=== PATIENT | female | born 1995 | race Caucasian/White ===

== ENCOUNTER 2022-12-26 10:42 | Emergency (ER) | payer MEDICAID, OTHER ==
[~2022-12-26] VITALS: Ht 165.1 cm; Wt 76.7 kg
[2022-12-26] MEDS ORDERED: NS IV 1000 ML 1,000 ML IV STA (10:58)
[2022-12-26] MEDS ORDERED: KETOROLAC 30 MG/ML VIAL IVP STA (10:58)
--- NOTE | 2022-12-26 11:05 | ED Abdominal Pain ---
General Chief Complaint: Abdominal/GI Problems Stated Complaint: POSSIBLE APENDACITIS Nursing Triage Note: PT AMBULATE TO ROOM 07 WITHOUT DIFFICULTY WITH C/O RLQ PAIN X2DAYS. PT DENIES N/V/D/FEVER. PT SEEN AT [facility] TODAY AND SENT TO ED. Source of Information: Patient Exam Limitations: No Limitations (NURA SANZ MD) History of Present Illness Date Seen by Provider: Dec 26, 2022 Time Seen by Provider: 10:47 Initial Comments Here with complaint of right lower quadrant abdominal pain for the last 2 days that has been worsening. Reports worse with movement and walking and better with rest. Denies dysuria, blood in her urine or stool or problems with bowel movements. Denies fever or chills. Denies nausea or vomiting. Went to the clinic today and they sent her here for concerns of appendicitis. She is not sexually active and has not been for at least 7 months. Last menstrual period was a week or so ago and she does not believe that it is time for that again yet. Timing/Duration: 1-2 Days Severity/Quality: Moderate Location: RLQ Radiation: No Radiation Activities at Onset: None Modifying Factors: Worsens With Movement, Worsens With Palpation Associated Symptoms: No Chest Pain, No Fever/Chills, No Nausea/Vomiting, No Shortness of Air, No Weakness (NURA SANZ MD) Allergies and Home Medications Allergies Coded Allergies: No Known Drug Allergies (Unverified , 12/26/22) Patient Home Medication List Home Medication List Reviewed: Yes (NURA SANZ MD) Amoxicillin/Potassium Clav (Augmentin 500-125 Tablet) 500 Mg-125 Mg Tablet, 1 EACH PO BID Prescribed by: CARA CASPER MD on 12/26/22 1243 Review of Systems Review of Systems Constitutional: see HPI; No chills, No fever EENTM: No Symptoms Reported Respiratory: No Symptoms Reported Cardiovascular: Denies Chest Pain Gastrointestinal: Abdominal Pain; Denies Diarrhea, Denies Vomiting Genitourinary: Denies Burning, Denies Discharge Musculoskeletal: No back pain, No joint pain Skin: No change in color, No lesions (NURA SANZ MD) Past Qnsitrf-Fzzkwr-Vajnuv Hx Patient Social History Tobacco Use?: Yes Smoking Status: Current Everyday Smoker Smokeless Tobacco Frequency: Never a User Use of E-Cig and/or Vaping dev: No Use of E-Cig and/or Vaping Dieudonne: Never a User Substance use?: No Alcohol Use?: No Pt feels they are or have been: No (NURA SANZ MD) Past Medical History Surgeries: No Cardiac: No Neurological: No (NURA SANZ MD) Family Medical History Reviewed Nursing Family Hx (NURA SANZ MD) No Pertinent Family Hx (NURA SANZ MD) Physical Exam Vital Signs Vital Signs - First Documented 12/26/22 10:50 Temp 36.6 Pulse 114 Resp 21 B/P (MAP) 116/82 (93) O2 Delivery Room Air ([facility]) Vital Signs Capillary Refill : Less Than 3 Seconds (NURA SANZ MD) Height/Weight/BMI Height: '" Weight: lbs. oz. kg; 28.00 BMI Method: General Appearance: WD/WN, no apparent distress HEENT: PERRL/EOMI, pharynx normal Neck: full range of motion, supple Respiratory: lungs clear, normal breath sounds Cardiovascular: regular rate, rhythm, no murmur Gastrointestinal: soft, guarding; No rebound; tenderness (Right lower quadrant) Extremities: non-tender, normal inspection Back: normal inspection, no CVA tenderness, no vertebral tenderness Neurologic/Psychiatric: alert, oriented x 3 Skin: normal color, warm/dry (NURA SANZ MD) Progress/Results/Core Measures Results/Orders Lab Results Laboratory Tests Test 12/26/22 10:57 12/26/22 11:00 Range/Units White Blood Count 15.0 H 4.3-11.0 10^3/uL Red Blood Count 4.26 3.80-5.11 10^6/uL Hemoglobin 13.6 11.5-16.0 g/dL Hematocrit 39 35-52 % Mean Corpuscular Volume 90 80-99 fL Mean Corpuscular Hemoglobin 32 25-34 pg Mean Corpuscular Hemoglobin Concent 35 32-36 g/dL Red Cell Distribution Width 12.1 10.0-14.5 % Platelet Count 274 130-400 10^3/uL Mean Platelet Volume 9.1 9.0-12.2 fL Immature Granulocyte % (Auto) 0 % Neutrophils (%) (Auto) 74 42-75 % Lymphocytes (%) (Auto) 16 12-44 % Monocytes (%) (Auto) 8 0-12 % Eosinophils (%) (Auto) 1 0-10 % Basophils (%) (Auto) 0 0-10 % Neutrophils # (Auto) 11.2 H 1.8-7.8 10^3/uL Lymphocytes # (Auto) 2.4 1.0-4.0 10^3/uL Monocytes # (Auto) 1.2 H 0.0-1.0 10^3/uL Eosinophils # (Auto) 0.2 0.0-0.3 10^3/uL Basophils # (Auto) 0.1 0.0-0.1 10^3/uL Immature Granulocyte # (Auto) 0.1 0.0-0.1 10^3/uL Neutrophils % (Manual) 70 % Lymphocytes % (Manual) 19 % Monocytes % (Manual) 9 % Eosinophils % (Manual) 2 % Basophils % (Manual) 0 % Band Neutrophils 0 % Blood Morphology Comment NORMAL Sodium Level 134 L 135-145 MMOL/L Potassium Level 4.0 3.6-5.0 MMOL/L Chloride Level 104 98-107 MMOL/L Carbon Dioxide Level 18 L 21-32 MMOL/L Anion Gap 12 5-14 MMOL/L Blood Urea Nitrogen 7 7-18 MG/DL Creatinine 0.73 0.60-1.30 MG/DL Estimat Glomerular Filtration Rate 115 BUN/Creatinine Ratio 10 Glucose Level 86 70-105 MG/DL Calcium Level 8.7 8.5-10.1 MG/DL Corrected Calcium 8.9 8.5-10.1 MG/DL Total Bilirubin 0.3 0.1-1.0 MG/DL Aspartate Amino Transf (AST/SGOT) 15 5-34 U/L Alanine Aminotransferase (ALT/SGPT) 19 0-55 U/L Alkaline Phosphatase 91 40-136 U/L C-Reactive Protein High Sensitivity 3.36 H 0.00-0.50 MG/DL Total Protein 7.2 6.4-8.2 GM/DL Albumin 3.8 3.2-4.5 GM/DL Urine Color YELLOW Urine Clarity CLOUDY Urine pH 5.5 5-9 Urine Specific [place] >=1.030 1.016-1.022 Urine Protein NEGATIVE NEGATIVE Urine Glucose (UA) NEGATIVE NEGATIVE Urine Ketones NEGATIVE NEGATIVE Urine Nitrite NEGATIVE NEGATIVE Urine Bilirubin NEGATIVE NEGATIVE Urine Urobilinogen 0.2 < = 1.0 MG/DL Urine Leukocyte Esterase 3+ H NEGATIVE Urine RBC (Auto) 1+ H NEGATIVE Urine RBC 5-10 H /HPF Urine WBC 10-25 H /HPF Urine Squamous Epithelial Cells 25-50 H /HPF Urine Crystals NONE /LPF Urine Bacteria MODERATE H /HPF Urine Casts NONE /LPF Urine Mucus NEGATIVE /LPF Urine Culture Indicated YES Urine Test NEGATIVE NEGATIVE (CARA CASPER DO) Medications Given in ED Current Medications Medications Dose Ordered Sig/Ehsan Route Start Time Stop Time Status Last Admin Dose Admin Iohexol 100 ml ONCE ONCE IV 12/26/22 12:00 12/26/22 12:01 DC 12/26/22 12:04 80 ML Sodium Chloride 100 ml ONCE ONCE IV 12/26/22 12:00 12/26/22 12:01 DC 12/26/22 12:04 80 ML (CARA CASPER DO) Vital Signs/I&O 12/26/22 10:50 Temp 36.6 Pulse 114 Resp 21 B/P (MAP) 116/82 (93) O2 Delivery Room Air (CARA CASPER DO) Blood Pressure Mean: 93 Progress Progress Note : Progress Note Seen and evaluated. IV, labs including CBC, CMP, CRP, UA and UCG ordered. Normal saline 1 L bolus and Toradol 30 mg IV ordered. Patient has been n.p.o. since 5 PM last night. She will remain n.p.o. Monitor patient. Differential diagnosis includes appendicitis, urinary tract infection, ureteral stone, constipation, intra-abdominal pathology CT abdomen pelvis with contrast ordered to evaluate for appendicitis. CBC reviewed and white count is elevated with normal hemoglobin. Chemistries grossly normal with elevated CRP. UA does show elevated squames with some white cells and red cells and bacteria but overall considered contaminated sample at this point. Monitor patient. (NURA SANZ MD) Departure Communication (Admissions) Patient is hemodynamically stable. Her abdominal exam is significant for some right-sided abdominal tenderness. He seems to be the midportion of her abdomen. She does have some voluntary guarding. CT scan significant for duodenitis with significant inflammation and some free fluid on my independent review. I added an amylase lipase to her current labs which is pending. I spoke to Dr. Carlos and he recommends discharge with outpatient follow-up for possible EGD. I will give her some antibiotics for duodenitis however it is unclear the source at this time. We discharged home in stable condition. Her pain is minimal, she describes it as a cramp in her stomach but regardless it is well controlled. (CARA CASPER DO) Impression Primary Impression: Duodenitis Disposition: HOME, SELF-CARE Condition: Stable Departure-Patient Inst. Referrals: LATOSHA CARLOS DO NO,LOCAL PHYSICIAN (PCP) Primary Care Physician Patient Instructions: Abdominal Pain, Adult ED Add. Discharge Instructions: Take the antibiotics as prescribed until they are gone. Drink lots of fluids. Follow-up with Dr. Carlos by calling to schedule an appointment. You will likely need an upper endoscopy, also called an EGD. Return to the emergency department for any severe concerns. Follow-up with your primary doctor for any nonemergent needs. All discharge instructions reviewed with patient and/or family. Voiced understanding. Scripts Amoxicillin/Potassium Clav (Augmentin 500-125 Tablet) 500 Mg-125 Mg Tablet 1 EACH PO BID for 10 Days, #20 TAB Prov: CARA CASPER DO 12/26/22 NURA SANZ MD Dec 26, 2022 11:05 CARA CASPER DO Dec 26, 2022 12:45
[2022-12-26 11:06] LABS: BILIRUBIN,URINE NEGATIVE (NEGATIVE); CLARITY,URINE CLOUDY; COLOR,URINE YELLOW; GLUCOSE, URINE (UA) NEGATIVE (NEGATIVE); KETONES,URINE NEGATIVE (NEGATIVE); LEUKOCYTE ESTERASE ,URINE 3+ (NEGATIVE); NITRITE,URINE NEGATIVE (NEGATIVE); PH,URINE 5.5 (5-9); PROTEIN,URINE NEGATIVE (NEGATIVE)
[2022-12-26 11:08] LABS: BASOPHILS # (AUTO) 0.1 10^3/uL (0.0-0.1); BASOPHILS % (AUTO) 0 % (0-10); EOSINOPHILS # (AUTO) 0.2 10^3/uL (0.0-0.3); EOSINOPHILS % (AUTO) 1 % (0-10); HEMATOCRIT 39 % (35-52); HEMOGLOBIN 13.6 g/dL (11.5-16.0); LYMPHOCYTES # (AUTO) 2.4 10^3/uL (1.0-4.0); LYMPHOCYTES % (AUTO) 16 % (12-44); MEAN CORPUSCULAR HEMOGLOBIN 32 pg (25-34); MEAN CORPUSCULAR HGB CONC 35 g/dL (32-36); MEAN CORPUSCULAR VOLUME 90 fL (80-99); MEAN PLATELET VOLUME 9.1 fL (9.0-12.2); MONOCYTES # (AUTO) 1.2 10^3/uL (0.0-1.0); MONOCYTES % (AUTO) 8 % (0-12); NEUTROPHILS # (AUTO) 11.2 10^3/uL (1.8-7.8); NEUTROPHILS % (AUTO) 74 % (42-75); PLATELET COUNT 274 10^3/uL (130-400)
[2022-12-26 11:17] LABS: BACTERIA,URINE MODERATE /HPF; SQUAMOUS EPITHELIAL CELL,UR 25-50 /HPF
[2022-12-26 11:19] LABS: ALBUMIN 3.8 GM/DL (3.2-4.5)
[2022-12-26 11:20] LABS: CALCIUM 8.7 MG/DL (8.5-10.1)
[2022-12-26 11:21] LABS: TOTAL PROTEIN 7.2 GM/DL (6.4-8.2)
[2022-12-26 11:23] LABS: BILIRUBIN,TOTAL 0.3 MG/DL (0.1-1.0)
[2022-12-26 11:25] LABS: CREATININE SERUM 0.73 MG/DL (0.60-1.30)
[2022-12-26 11:54] LABS: BAND NEUTROPHILS 0 %; BASOPHILS % (MANUAL) 0 %; EOSINOPHILS % (MANUAL) 2 %; LYMPHOCYTES % (MANUAL) 19 %; MONOCYTES % (MANUAL) 9 %; NEUTROPHILS % (MANUAL) 70 %; RBC MORPH NORMAL
[2022-12-26] MEDS ORDERED: IOHEXOL 350 MG/ML 100 ML (OMNIPAQUE 350) VIAL IV ONE (12:00)
[2022-12-26] MEDS ORDERED: NS 100 ML (IVPB) BAG IV ONE (12:00)
[2022-12-26] MEDS ORDERED: HOLD METFORMIN - RECEIVED CONTRAST 20 ML VIAL IV SCH (12:00)
--- NOTE | 2022-12-26 12:30 | Diagnostic Imaging Report ---
PROCEDURE: CT abdomen and pelvis with contrast, rule out appendicitis. TECHNIQUE: Multiple contiguous axial images were obtained through the abdomen and pelvis after the administration of intravenous contrast. All CT scans use one or more of the following dose optimizing techniques: automated exposure control, MA and/or KvP adjustment based on patient size and exam type or iterative reconstruction. DATE: December 26, 2022. INDICATION: 27-year-old female, right lower quadrant abdominal pain. Nausea, vomiting, diarrhea. Fever. COMPARISON: None. FINDINGS: The visualized portions of the lungs are clear. The heart is not enlarged. There is no pericardial effusion. The liver is unremarkable in size and contour. There is no identified liver lesion. The main, right, and left portal veins are patent. The gallbladder is unremarkable. There is no intrahepatic or extrahepatic bile duct dilation. The main pancreatic duct is not abnormally dilated. Unremarkable appearance of the pancreatic parenchyma. Multiple splenic calcifications likely reflect sequela of prior granulomatous disease. The spleen is normal in size. The adrenal glands are unremarkable. Unremarkable appearance of the renal parenchyma. The urinary collecting systems are not distended. There is no identified renal or ureteral stone. The urinary bladder is unremarkable. There is a low-attenuation left adnexal lesion on axial image 137 which measures 3.6 cm in size. This may reflect an ovarian cyst but is not definitively characterized on CT. The intestinal tract is not distended. There is no free intraperitoneal air. There is no drainable fluid collection. There is no free fluid in the abdomen or pelvis. There is wall thickening of the second and third portions of the duodenum. There is a small volume ascites. There is no identified focal drainable fluid collection. There is no identified abnormally enlarged lymph node in the abdomen or pelvis meeting CT size criteria for adenopathy. There is no acute bony abnormality. IMPRESSION: 1. Abnormal wall thickening of the second and third portions of duodenum likely reflecting a nonspecific duodenitis. 2. Small volume ascites. 3. No identified focal drainable fluid collection or free intraperitoneal air. Dictated by: Dictated on workstation # [id number]
[2022-12-26] MEDS ORDERED: AMOX-355 PO (12:43)
[2022-12-26 12:57] VITALS: BP 124/72
[2022-12-29] MEDS ORDERED: METR-145 PO (12:22)
[2022-12-29] MEDS ORDERED: LEVO-55 PO (12:22)
[2022-12-29] MEDS ORDERED: ACHD5005 PO (12:22)
== END 2022-12-26 12:57 | disposition home or self-care (01) ==
LOC: ER 10:46
DX: K29.80 Duodenitis without bleeding (principal); F17.200 Nicotine dependence, unspecified, uncomplicated
CPT/HCPCS: 36415; 74177; 80053; 81000; 83690; 84703; 85007; 85027; 86141; 87088

== ENCOUNTER 2022-12-27 18:57 | Inpatient (IN) | payer MEDICAID ==
[~2022-12-27] VITALS: Ht 165 cm; Wt 76.0 kg
[~2022-12-27 18:57] MED LIST: AMOX-355 PO
--- NOTE | 2022-12-27 19:06 | ED Abdominal Pain ---
General Stated Complaint: ABD PAIN Source of Information: Patient (VERY VAGUE AND SOMEWHAT DIFFICULT HISTORIAN. ), Old Records History of Present Illness Date Seen by Provider: Dec 27, 2022 Time Seen by Provider: 18:57 Initial Comments PT ARRIVES VIA EMS FROM [facility]--PT WALKED TO [facility], THEY CALLED EMS ( NO CALL FROM [facility]) PT C/O RLQ PAIN X 2 DAYS PAIN IS CONSTANT AND DOES NOT RADIATE PAIN IS WORSE WITH MOVEMENTS, WALKING OR BREATHING NO NAUSEA/VOMITING/DIARRHEA NO URINARY SYMPTOMS AND VOIDING A NORMAL AMOUNT NO LOOP SEWER COMPLAINTS, DENIES DISCHARGE. DENIES RECENT INTERCOURSE NO COUGH NO SHORTNESS OF BREATH SHE STATES SHE HAD FEVER OF "102" AT [facility], JUST PRIOR TO ARRIVAL, NO TESTS OR TREATMENT BY [facility] SHE HAS NOT TAKEN ANYTHING FOR PAIN AT ANY TIME. LMP: --NOT SURE--THINKS IT ENDED LAST WEEK AROUND 12/20/22. NO CONTROL NO LOOP SEWER SYMPTOMS PT WAS SEEN HERE YESTERDAY AND DX WITH DUODENITIS, AND PRESCRIBED AUGMENTIN SHE DENIES ANY PRIOR MEDICAL PROBLEMS AND STATES HE HAS NOT HAD ANY SURGERIES Allergies and Home Medications Allergies Coded Allergies: No Known Drug Allergies (Unverified , 12/26/22) Patient Home Medication List Home Medication List Reviewed: Yes Amoxicillin/Potassium Clav (Augmentin 500-125 Tablet) 500 Mg-125 Mg Tablet, 1 EACH PO BID Prescribed by: CARA CASPER MD on 12/26/22 1243 Review of Systems Review of Systems Constitutional: see HPI EENTM: No Symptoms Reported Respiratory: No Symptoms Reported Cardiovascular: No Symptoms Reported Gastrointestinal: See HPI, Abdominal Pain; Denies Constipated, Denies Diarrhea, Denies Nausea, Denies Vomiting Genitourinary: No Symptoms Reported Musculoskeletal: no symptoms reported Skin: no symptoms reported Psychiatric/Neurological: No Symptoms Reported Endocrine: No Symptoms Reported Hematologic/Lymphatic: No Symptoms Reported Past Igsrfrx-Ipfuye-Aeaxnt Hx Patient Social History Tobacco Use?: Yes Tobacco type used: Cigarettes Smoking Status: Current Everyday Smoker Substance use?: Yes Substance type: Methamphetamine, Marijuana Alcohol Use?: No Past Medical History Surgeries: No Respiratory: No Cardiac: No Neurological: No : No Genitourinary: No Gastrointestinal: No Musculoskeletal: No Endocrine: No HEENT: No Cancer: No Psychosocial: No Integumentary: No Blood Disorders: No Family Medical History No Pertinent Family Hx SOCIAL HISTORY: -SMOKES 1 PPD -ETOH--DENIES USE -DRUGS--METHAMPHETAMINE AND THC USE. STATES SHE SMOKES THEM, DENIES IV USE Physical Exam Vital Signs Vital Signs - First Documented 12/27/22 18:57 Temp 37.6 Pulse 107 Resp 14 B/P (MAP) 117/77 (90) Pulse Ox 98 O2 Delivery Room Air Capillary Refill : Height/Weight/BMI Height: '" Weight: lbs. oz. kg; 28.00 BMI Method: General Appearance: WD/WN, no apparent distress, other (TALKING ON PHONE SOON SHE ARRIVES. ) HEENT: PERRL/EOMI; No scleral icterus (R), No scleral icterus (L), No pale conjunctivae (R), No pale conjunctivae (L) Neck: normal inspection Respiratory: normal breath sounds, no respiratory distress, no accessory muscle use Cardiovascular: no edema, no murmur, tachycardia Gastrointestinal: abnormal bowel sounds (RARE), distended (AND VERY FIRM), guarding, rebound, tenderness (HAS VERY SIGNIFICANT, DIFFUSE TENDERNESS, BUT IS MOST TENDER IN RLQ.); No hernia, No mass Extremities: normal inspection, normal capillary refill Back: no CVA tenderness Pelvic: discharge; No lesions; tender w/ cervical motion, tender adnexa, tender uterus, other (EXTERNAL GENITAL AREA WITHOUT LESIONS, BUT THERE IS COPIOUS PURULENT DISCHARGE NOTED EXTERNALLY WELL ON SPECULUM EXAM. CERVIX IS INFLAMED AND FRIABLE, WITH + CERVICAL MOTION TENDERNESS, AND DIFFUSE TENDERNESS ON BIMANUAL EXAM. HER ENTIRE ABDOMEN IS MARKEDLY TENDER. 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 ) Skin: normal color (FACE FLUSHED. ), warm/dry, other (SORES/SCARS/SCABS TO FACE AND FOREARMS. ) Focused Exam Sepsis Stage: Sepsis Possible Source: GI Tract/Intra-Abdominal (AND POSSIBLE GENITO-URINARY SOURCE) Lactate Level 12/27/22 19:20: Lactic Acid Level 0.99 Time of Focused Exam: 20:40 Respiratory: Normal Breath Sounds, No Accessory Muscle Use, No Respiratory Distress Cardiovascular: Regular Rate, Rhythm, No Murmur Capillary Refill: Less Than 3 Seconds Skin: normal color, warm/dry Lactic Acid Level Laboratory Tests Test 12/27/22 19:20 Lactic Acid Level 0.99 MMOL/L (0.50-2.00) Within 3hrs of presentation: Admin fluids, Admin ABX, Blood cultures prior to ABX's, Focus exam, Lactate level Progress/Results/Core Measures Results/Orders Lab Results Laboratory Tests Test 12/27/22 19:00 12/27/22 19:20 12/27/22 19:32 12/27/22 20:52 Range/Units White Blood Count 18.0 H 4.3-11.0 10^3/uL Red Blood Count 4.00 3.80-5.11 10^6/uL Hemoglobin 12.7 11.5-16.0 g/dL Hematocrit 37 35-52 % Mean Corpuscular Volume 93 80-99 fL Mean Corpuscular Hemoglobin 32 25-34 pg Mean Corpuscular Hemoglobin Concent 34 32-36 g/dL Red Cell Distribution Width 12.3 10.0-14.5 % Platelet Count 235 130-400 10^3/uL Mean Platelet Volume 9.2 9.0-12.2 fL Immature Granulocyte % (Auto) 0 % Neutrophils (%) (Auto) 80 H 42-75 % Lymphocytes (%) (Auto) 11 L 12-44 % Monocytes (%) (Auto) 8 0-12 % Eosinophils (%) (Auto) 0 0-10 % Basophils (%) (Auto) 0 0-10 % Neutrophils # (Auto) 14.4 H 1.8-7.8 10^3/uL Lymphocytes # (Auto) 2.0 1.0-4.0 10^3/uL Monocytes # (Auto) 1.4 H 0.0-1.0 10^3/uL Eosinophils # (Auto) 0.1 0.0-0.3 10^3/uL Basophils # (Auto) 0.1 0.0-0.1 10^3/uL Immature Granulocyte # (Auto) 0.1 0.0-0.1 10^3/uL Neutrophils % (Manual) 84 % Lymphocytes % (Manual) 11 % Monocytes % (Manual) 5 % Blood Morphology Comment NORMAL Erythrocyte Sedimentation Rate 31 H 0-20 MM/HR Sodium Level 135 135-145 MMOL/L Potassium Level 3.7 3.6-5.0 MMOL/L Chloride Level 105 98-107 MMOL/L Carbon Dioxide Level 21 21-32 MMOL/L Anion Gap 9 5-14 MMOL/L Blood Urea Nitrogen 6 L 7-18 MG/DL Creatinine 0.69 0.60-1.30 MG/DL Estimat Glomerular Filtration Rate 121 BUN/Creatinine Ratio 9 Glucose Level 115 H 70-105 MG/DL Calcium Level 8.9 8.5-10.1 MG/DL Corrected Calcium 9.1 8.5-10.1 MG/DL Magnesium Level 2.0 1.6-2.4 MG/DL Total Bilirubin 0.7 0.1-1.0 MG/DL Aspartate Amino Transf (AST/SGOT) 14 5-34 U/L Alanine Aminotransferase (ALT/SGPT) 16 0-55 U/L Alkaline Phosphatase 80 40-136 U/L C-Reactive Protein High Sensitivity 14.66 H 0.00-0.50 MG/DL Total Protein 7.0 6.4-8.2 GM/DL Albumin 3.7 3.2-4.5 GM/DL Amylase Level 42 25-125 U/L Lipase 17 8-78 U/L Serum Test, Qualitative NEGATIVE NEGATIVE Serum Alcohol < 10 <10 MG/DL Urine Color YELLOW Urine Clarity SL CLOUDY Urine pH 6.0 5-9 Urine Specific [place] 1.015 L 1.016-1.022 Urine Protein NEGATIVE NEGATIVE Urine Glucose (UA) NEGATIVE NEGATIVE Urine Ketones NEGATIVE NEGATIVE Urine Nitrite NEGATIVE NEGATIVE Urine Bilirubin NEGATIVE NEGATIVE Urine Urobilinogen 0.2 < = 1.0 MG/DL Urine Leukocyte Esterase 3+ H NEGATIVE Urine RBC (Auto) TRACE-I H NEGATIVE Urine RBC 10-25 H /HPF Urine WBC 10-25 H /HPF Urine Squamous Epithelial Cells 10-25 H /HPF Urine Crystals NONE /LPF Urine Bacteria MODERATE H /HPF Urine Casts NONE /LPF Urine Mucus MODERATE H /LPF Urine Trichomonas MODERATE H /HPF Urine Culture Indicated CULTURE PENDING Lactic Acid Level 0.99 0.50-2.00 MMOL/L Urine Opiates Screen NEGATIVE NEGATIVE NEGATIVE Urine Oxycodone Screen NEGATIVE NEGATIVE NEGATIVE Urine Methadone Screen NEGATIVE NEGATIVE NEGATIVE Urine Propoxyphene Screen NEGATIVE NEGATIVE NEGATIVE Urine Barbiturates Screen NEGATIVE NEGATIVE NEGATIVE Ur Tricyclic Antidepressants Screen NEGATIVE NEGATIVE NEGATIVE Urine Phencyclidine Screen NEGATIVE NEGATIVE NEGATIVE Urine Amphetamines Screen NEGATIVE NEGATIVE NEGATIVE Urine Methamphetamines Screen NEGATIVE NEGATIVE NEGATIVE Urine Benzodiazepines Screen NEGATIVE NEGATIVE NEGATIVE Urine Cocaine Screen NEGATIVE NEGATIVE NEGATIVE Urine Cannabinoids Screen NEGATIVE NEGATIVE NEGATIVE Influenza Type A (RT-PCR) Not Detected Not Detecte Influenza Type B (RT-PCR) Not Detected Not Detecte SARS-CoV-2 RNA (RT-PCR) Not Detected Not Detecte Prothrombin Time 13.6 12.2-14.7 SEC INR Comment 1.0 0.8-1.4 Activated Partial Thromboplast Time 33 24-35 SEC My Orders Orders - JOSE MANUEL BATRES DO Ed Iv/Invasive Line Start (12/27/22 19:) Monitor-Rhythm Ecg Trace Only (12/27/22:) Alcohol (12/27/22:) Amylase (12/27/22:) Cbc With Automated Diff (12/27/22) Comprehensive Metabolic Panel (12/27/22:) Hs C Reactive Protein (12/27/22:) Drug Screen Stat (Urine) (12/27/22:) Hcg,Qualitative Serum (12/27/22:) Lactic Acid Analyzer (12/27/22:) Lipase (12/27/22:) Magnesium (12/27/22:) Protime With Inr (12/27/22:) Partial Thromboplastin Time (12/27/22:) Ua Culture If Indicated (12/27/22:) Blood Culture (12/27/22:) Erythrocyte Sedimentation Rate (12/27/22:) Ct Abd/Pelv W (Appendicitis) (12/27/22:) Ed Iv/Invasive Line Start (12/27/22:) Lactated Ringers (Lr 1000 Ml Iv Solution (12/27/22 19:15) Chest 1 View, Ap/Pa Only (12/27/22:) Covid 19 Inhouse Test (12/27/22:) Urine Culture (12/27/22:) Acetaminophen Tablet (Tylenol Tablet) (12/27/22 19:15) Ed Iv/Invasive Line Start (12/27/22:01) Vital Signs Adult Sepsis Patie Q15M (12/27/22:) Remove Rings In Anticipation O (7/10/23 19:01) Piperacillin Sodium/Tazobactam (Zosyn Vi (12/27/22 19:15) Influenza A And B By Pcr (12/27/22 19:01) Manual Differential (12/27/22 19:00) Iohexol Injection (Omnipaque 350 Mg/Ml 1 (12/27/22 19:45) Ns (Ivpb) (Sodium Chloride 0.9% Ivpb Bag (12/27/22 19:45) Metronidazole 500mg/100ml Ivpb (Flagyl 5 (12/27/22 20:45) Ketorolac Injection (Toradol Injection) (12/27/22 20:45) Ceftriaxone Iv/Im (Rocephin Iv/Im) (12/27/22 21:00) Drug Screen Stat (Urine) (12/27/22 20:53) Azithromycin Tablet (Zithromax Tablet) (12/27/22 21:00) Neisseria Gonorrhea Swab (12/27/22 21:38) Chlam Dna Probe (12/27/22 21:38) Genital Culture (12/27/22 21:38) Wet Prep (12/27/22 21:38) Erica Prep (12/27/22 21:38) Medications Given in ED Current Medications Medications Dose Ordered Sig/Ehsan Route Start Time Stop Time Status Last Admin Dose Admin Azithromycin 1,000 mg ONCE ONCE PO 12/27/22 21:00 12/27/22 21:01 DC 12/27/22 21:05 1,000 MG Ceftriaxone Sodium 1000 mg/ Sodium Chloride 50 ml @ 100 mls/hr ONCE ONCE IV 12/27/22 21:00 12/27/22 21:29 DC 12/27/22 21:05 100 MLS/HR Iohexol 100 ml ONCE ONCE IV 12/27/22 19:45 12/27/22 19:46 DC 12/27/22 19:58 80 ML Ketorolac Tromethamine 30 mg ONCE ONCE IVP 12/27/22 20:45 12/27/22 20:46 DC 12/27/22 20:55 30 MG Lactated Ringer's 1,000 ml @ 0 mls/hr Q0M ONCE IV 12/27/22 19:15 12/27/22 19:16 DC 12/27/22 19:26 0 MLS/HR Metronidazole 100 ml @ 100 mls/hr ONCE ONCE IV 12/27/22 20:45 12/27/22 21:44 DC 12/27/22 20:55 100 MLS/HR Piperacillin Sod/ Tazobactam Sod 4.5 gm/Sodium Chloride 100 ml @ 200 mls/hr ONCE ONCE IV 12/27/22 19:15 12/27/22 19:44 DC 12/27/22 19:26 200 MLS/HR Sodium Chloride 100 ml ONCE ONCE IV 12/27/22 19:45 12/27/22 19:46 DC 12/27/22 19:58 80 ML Vital Signs/I&O 12/27/22 18:57 Temp 37.6 Pulse 107 Resp 14 B/P (MAP) 117/77 (90) Pulse Ox 98 O2 Delivery Room Air Progress Progress Note : Progress Note VITALS ON ARRIVAL: TEMP 37.6=99.6, HR 107, RR 14, BP 117/77, O2 SAT 98% ON ROOM AIR SEPSIS PROTOCOL INITIATED LABS INCLUDING CBC, CMP, AMYLASE/LIPASE, LACTIC ACIC, BLOOD CULTURES, UA, HCG, ETOH, UDS ORDERED WELL CT SCAN OF ABDOMEN/PELVIS GENITAL CULTURES PENDING. GIVEN: -IV FLUIDS -ZOSYN -ROCEPHIN + ZITHROMAX FOR PID/POSSIBLE STD -FLAGYL FOR + TRICHOMONAS -TORADOL FOR PAIN VITALS REMAIN STABLE. NO TACHYCARDIA OR HYPOTENSION. VITALS AT TIME OF ADMIT TO FLOOR: TEMP 36.9=98.4, HR 93, RR 18, BP 115/70, O2 SAT 98% ON ROOM AIR PERTINENT LABS: -CBC WITH WBC 18,000 --UP FROM 15,000, YESTERDAY -CMP UNREMARKABLE -LACTIC ACID 0.99 -CRP 14.66--UP FROM 3.36 YESTERDAY -UA WITH 3+ LEUKOCYTES, 10-25 RBC, 10-25 WBC, MODERATE BACTERIA, MODERATE T RICHOMONAS -HCG NEGATIVE CT SCAN SHOWS FLUID COLLECTION IN RLQ/RETROPERITONEAL, WITH POSSIBLE ABSCESS, AND INFLAMMATION TO SECOND AND THIRD PARTS OF DUODENUM PT LATER STATES THAT SHE IS IN A "WOMEN'S HOUSE" ( EXTREMELY VAGUE ABOUT WHAT KIND OF "HOUSE" THIS IS--BUT STATES THAT SHE IS SUPPOSED TO BE IN COURT TOMORROW MORNING AND IS UNDER ORDERS NOT TO LEAVE THE "HOUSE" BUT SHE DID TODAY ANYWAY BECAUSE OF THE PAIN ) SHE IS EXTREMELY VAGUE ABOUT WHY SHE IS GOING TO COURT, AND ASKED ABOUT DRUGS, SHE STATES "MAYBE-I GUESS SO" AND WILL NOT ELABORATE. PT THEN LATER ADMITS TO METHAMPHETAMINE AND THC USE. DENIES IV USE. PT STATES SHE LIVES IN [place]. DISCUSSED TEST RESULTS, NEED FOR ADMIT AND PT IS AGREEABLE TO PLAN REVIEWED PRIOR ER VISIT RECORDS FROM YESTERDAY--PT'S ONLY PRIOR VISIT HERE. Diagnostic Imaging Comments CT ABDOMEN/PELVIS--PER RADIOLOGIST REPORT AT 2022 Comparison made to previous study of yesterday. Visualized portions of the lung bases are clear. There is no free intraperitoneal air or pleural fluid. The liver shows no focal lesion. The spleen shows a few calcified granulomata but otherwise is normal in appearance. The adrenals and pancreas appear normal. The kidneys bilaterally appear normal. There is some thickening of the right ureter as it passes through the retroperitoneum, but no stone or hydronephrosis. There is thickening of the 2nd and 3rd portion of the duodenum compatible with duodenitis, similar to the prior study. There is some reactive inflammatory change in the right side of the retroperitoneum in the anterior pararenal space. There is a fluid collection in the right side of the retroperitoneum inferiorly measuring about 4.2 x 2.2 cm. Developing abscess cannot be excluded. There is a small amount of free fluid in the pelvis. There is a left adnexal cystic lesion measuring about 3.6 cm which is similar to the prior study. IMPRESSION: There is soft tissue thickening of the 2nd and 3rd portion of duodenum again noted, compatible with duodenitis. There is reactive edema in the right side of the retroperitoneum in the anterior pararenal space. Patient is developing a fluid collection in the anterior pararenal space in the right lower quadrant, measuring 4.2 x 2.2 cm. This may represent reactive edema although abscess is not excluded. The appendix is not well visualized but this process appears to be centered over the duodenum. There does appear to be some mild inflammatory change about the right ureter as it passes through the retroperitoneum, but no evidence of stone or hydronephrosis. Left adnexal cyst is unchanged. Reviewed: Reviewed by Me Departure Communication (Admissions) 2024--SPOKE WITH DR. ESPARZA, SURGEON WATER SERVER. ACCEPTS PT FOR ADMIT. ORDERS NOTED. Impression Primary Impression: Abdominal pain Additional Impressions: Duodenitis Trichomonas infection PID (pelvic inflammatory disease) UTI (urinary tract infection) History of methamphetamine use Smoker Sepsis POSSIBLE RETROPERITONEAL / RLQ ABSCESS Disposition: ADMITTED INPATIENT Condition: Stable Admissions Decision to Admit Reason: Admit from ER (General) Decision to Admit/Date: Dec 27, 2022 Time/Decision to Admit Time: 20:25 Departure-Patient Inst. Referrals: NO,LOCAL PHYSICIAN (PCP/Family) Primary Care Physician JOSE MANUEL BATRES DO Dec 27, 2022 19:06
[2022-12-27 19:12] LABS: BASOPHILS # (AUTO) 0.1 10^3/uL (0.0-0.1); BASOPHILS % (AUTO) 0 % (0-10); EOSINOPHILS # (AUTO) 0.1 10^3/uL (0.0-0.3); EOSINOPHILS % (AUTO) 0 % (0-10); HEMATOCRIT 37 % (35-52); HEMOGLOBIN 12.7 g/dL (11.5-16.0); LYMPHOCYTES % (AUTO) 11 % (12-44); MEAN CORPUSCULAR HEMOGLOBIN 32 pg (25-34); MEAN CORPUSCULAR HGB CONC 34 g/dL (32-36); MEAN CORPUSCULAR VOLUME 93 fL (80-99); MEAN PLATELET VOLUME 9.2 fL (9.0-12.2); MONOCYTES # (AUTO) 1.4 10^3/uL (0.0-1.0); MONOCYTES % (AUTO) 8 % (0-12); NEUTROPHILS # (AUTO) 14.4 10^3/uL (1.8-7.8); NEUTROPHILS % (AUTO) 80 % (42-75); PLATELET COUNT 235 10^3/uL (130-400)
[2022-12-27] MEDS ORDERED: PIPERACILLIN SODIUM/TAZOBACTAM 4.5 GM in NS (IVPB) 100 ML IV ONE (19:15)
[2022-12-27] MEDS ORDERED: LACTATED RINGERS 1,000 ML IV ONE (19:15)
[2022-12-27] MEDS ORDERED: ACETAMINOPHEN 500 MG TAB (TYLENOL) PO PRN ×2 (19:15→23:30)
[2022-12-27 19:19] LABS: ALBUMIN 3.7 GM/DL (3.2-4.5); CHLORIDE 105 MMOL/L (98-107); POTASSIUM 3.7 MMOL/L (3.6-5.0); SODIUM 135 MMOL/L (135-145)
[2022-12-27 19:20] LABS: CALCIUM 8.9 MG/DL (8.5-10.1)
[2022-12-27 19:21] LABS: AMYLASE 42 U/L (25-125); GLUCOSE 115 MG/DL (70-105)
[2022-12-27 19:22] LABS: CARBON DIOXIDE 21 MMOL/L (21-32)
[2022-12-27 19:23] LABS: BILIRUBIN,TOTAL 0.7 MG/DL (0.1-1.0)
[2022-12-27 19:25] LABS: ALKALINE PHOSPHATASE 80 U/L (40-136); CREATININE SERUM 0.69 MG/DL (0.60-1.30); GFR ESTIMATED 121
[2022-12-27 19:26] LABS: BUN/CREATININE RATIO 9
[2022-12-27 19:28] LABS: ALANINE AMINOTRANSFERASE 16 U/L (0-55)
[2022-12-27 19:29] LABS: BILIRUBIN,URINE NEGATIVE (NEGATIVE); CLARITY,URINE SL CLOUDY; COLOR,URINE YELLOW; GLUCOSE, URINE (UA) NEGATIVE (NEGATIVE); KETONES,URINE NEGATIVE (NEGATIVE); LEUKOCYTE ESTERASE ,URINE 3+ (NEGATIVE); NITRITE,URINE NEGATIVE (NEGATIVE); PROTEIN,URINE NEGATIVE (NEGATIVE)
[2022-12-27 19:30] LABS: LIPASE 17 U/L (8-78)
[2022-12-27 19:36] LABS: ERYTHROCYTE SEDIMENTATION RATE 31 MM/HR (0-20)
[2022-12-27 19:39] LABS: LYMPHOCYTES % (MANUAL) 11 %; MONOCYTES % (MANUAL) 5 %; NEUTROPHILS % (MANUAL) 84 %; RBC MORPH NORMAL
[2022-12-27] MEDS ORDERED: NS 100 ML (IVPB) BAG IV ONE (19:45)
[2022-12-27] MEDS ORDERED: IOHEXOL 350 MG/ML 100 ML (OMNIPAQUE 350) VIAL IV ONE (19:45)
[2022-12-27 19:46] LABS: BACTERIA,URINE MODERATE /HPF
[2022-12-27 19:47] LABS: AMPHETAMINE SCREEN, URINE NEGATIVE (NEGATIVE); BARBITURATE SCREEN URINE NEGATIVE (NEGATIVE); BENZODIAZEPINES SCREEN URINE NEGATIVE (NEGATIVE); CANNABINOID SCREEN, URINE NEGATIVE (NEGATIVE); COCAINE SCREEN URINE NEGATIVE (NEGATIVE); METHADONE STAT NEGATIVE (NEGATIVE); OPIATE SCREEN URINE NEGATIVE (NEGATIVE); OXYCODONE STAT NEGATIVE (NEGATIVE); PROPOXYPHENE STAT NEGATIVE (NEGATIVE); TRICHOMONAS,URINE MODERATE /HPF; TRICYCLIC ANTIDEPRESSANTS SCRE NEGATIVE (NEGATIVE)
[2022-12-27 20:10] LABS: PROTHROMBIN TIME PATIENT 13.6 SEC (12.2-14.7)
--- NOTE | 2022-12-27 20:15 | Diagnostic Imaging Report ---
INDICATION: Fever Frontal chest obtained at 0755 p.m. Heart and mediastinal silhouette are normal in appearance. The lungs are clear. There is no pneumothorax or pleural fluid. IMPRESSION: Negative chest. Dictated by: Dictated on workstation # [id number]
--- NOTE | 2022-12-27 20:19 | Diagnostic Imaging Report ---
INDICATION: Right lower quadrant abdominal pain. TECHNIQUE: Multiple contiguous axial images were obtained through the abdomen and pelvis after the administration of intravenous contrast. All CT scans use one or more of the following dose optimizing techniques: automated exposure control, MA and/or KvP adjustment based on patient size and exam type or iterative reconstruction. Comparison made to previous study of yesterday. Visualized portions of the lung bases are clear. There is no free intraperitoneal air or pleural fluid. The liver shows no focal lesion. The spleen shows a few calcified granulomata but otherwise is normal in appearance. The adrenals and pancreas appear normal. The kidneys bilaterally appear normal. There is some thickening of the right ureter as it passes through the retroperitoneum, but no stone or hydronephrosis. There is thickening of the 2nd and 3rd portion of the duodenum compatible with duodenitis, similar to the prior study. There is some reactive inflammatory change in the right side of the retroperitoneum in the anterior pararenal space. There is a fluid collection in the right side of the retroperitoneum inferiorly measuring about 4.2 x 2.2 cm. Developing abscess cannot be excluded. There is a small amount of free fluid in the pelvis. There is a left adnexal cystic lesion measuring about 3.6 cm which is similar to the prior study. IMPRESSION: There is soft tissue thickening of the 2nd and 3rd portion of duodenum again noted, compatible with duodenitis. There is reactive edema in the right side of the retroperitoneum in the anterior pararenal space. Patient is developing a fluid collection in the anterior pararenal space in the right lower quadrant, measuring 4.2 x 2.2 cm. This may represent reactive edema although abscess is not excluded. The appendix is not well visualized but this process appears to be centered over the duodenum. There does appear to be some mild inflammatory change about the right ureter as it passes through the retroperitoneum, but no evidence of stone or hydronephrosis. Left adnexal cyst is unchanged. Dictated by: Dictated on workstation # [id number]
[2022-12-27] MEDS ORDERED: metroNIDAZOLE 500MG/100ML IVPB 100 ML IV ONE (20:45)
[2022-12-27] MEDS ORDERED: KETOROLAC 30 MG/ML VIAL IVP ONE (20:45)
[2022-12-27] MEDS ORDERED: AZITHROMYCIN 250 MG TAB (ZITHROMAX) PO ONE (21:00)
[2022-12-27] MEDS ORDERED: cefTRIAXone IV/IM 1,000 MG in NS (IVPB) 50 ML IV ONE (21:00)
[2022-12-27 21:19] LABS: AMPHETAMINE SCREEN, URINE NEGATIVE (NEGATIVE); BARBITURATE SCREEN URINE NEGATIVE (NEGATIVE); BENZODIAZEPINES SCREEN URINE NEGATIVE (NEGATIVE); CANNABINOID SCREEN, URINE NEGATIVE (NEGATIVE); COCAINE SCREEN URINE NEGATIVE (NEGATIVE); METHADONE STAT NEGATIVE (NEGATIVE); OPIATE SCREEN URINE NEGATIVE (NEGATIVE); OXYCODONE STAT NEGATIVE (NEGATIVE); PROPOXYPHENE STAT NEGATIVE (NEGATIVE); TRICYCLIC ANTIDEPRESSANTS SCRE NEGATIVE (NEGATIVE)
[2022-12-27 22:10] VITALS: BP 110/63
[2022-12-27] MEDS ORDERED: D5 1/2 NS W/KCL 20 MEQ/L 1,000 ML IV ONE (23:12)
[2022-12-27] MEDS ORDERED: fentaNYL INJ 100 MCG/2 ML AMP IV PRN (23:30)
[2022-12-27] MEDS ORDERED: ONDANSETRON 4 MG/2 ML (SDV) Z0FRAN IV PRN (23:30)
[2022-12-27] MEDS: D5 1/2 NS W/KCL 20 MEQ/L 1,000 ML IV SCH (23:33)
[2022-12-27] MEDS ORDERED: VANCOMYCIN 1500MG/300ML PREMIX IV ONE (23:45)
--- NOTE | 2022-12-27 23:59 | HISTORY AND PHYSICAL ---
HISTORY OF PRESENT ILLNESS: The patient is a 27-year-old female, who presented to the Emergency Department with abdominal pain for the past 2 days. She states that this started yesterday and she did present to the Emergency Department where a CT scan was performed, which did show some mild inflammation of the duodenum and she was treated with antibiotics. She states that the pain persisted and worsened over time and again presented to the Emergency Department where another CT scan was performed, which did show slight worsening and inflammation of the second and third portions of the duodenum. There appears to be a fluid collection, which is in the right retroperitoneal region as well of unknown etiology. The appendix was not visualized on the CT scan. She does not report any change in urinary symptoms and denies any gynecologic issues. PAST SURGICAL HISTORY: Duodenitis. PAST SURGERIES: None. ALLERGIES: No known drug allergies. MEDICATIONS: Augmentin 500 mg b.i.d. SOCIAL HISTORY: Positive smoke 10 pack years. Social alcohol. She does use marijuana and has used methamphetamine in the past. FAMILY HISTORY: Noncontributory. VITAL SIGNS: Temperature 36.9, blood pressure 110/63, pulse 93, respirations 16, pulse ox 98% on room air. REVIEW OF SYSTEMS: Well-nourished female, currently in no acute distress. She is not experiencing any shortness of breath or difficulty breathing. No chest pain, palpitations, diaphoresis. She does have epigastric pain; however she also states pain more in the right lower abdominal quadrant. She does not report any diarrhea as well as no red blood per rectum, nor any dark tarry stools. No fever, chills, no recent inadvertent weight loss. All other review of systems negative. PHYSICAL EXAMINATION: CHEST: Clear. Good breath sounds bilaterally. HEART: Regular. No murmurs. EXTREMITIES: No lower extremity edema. Negative Homans sign. HEENT: No scleral icterus. No cervical lymphadenopathy. ABDOMEN: nondistended with pain in the epigastric region, right upper abdominal quadrant as well as right lower abdominal quadrant with voluntary guarding, no rebound. SKIN: Warm, dry. LABORATORY DATA: WBC 18.0, hemoglobin 12.7, hematocrit 37, platelets 235. BUN 6, creatinine 0.69. Liver function enzymes normal. Amylase, lipase normal. Urinalysis, 3+ leukocyte esterase with a moderate amount of bacteria as well as moderate Trichomonas. ASSESSMENT AND PLAN: A 27-year-old female with abdominal pain and duodenitis as well as a small right retroperitoneal lesion with a urinary tract infection and positive for Trichomonas. We feel that the inflammation of the duodenum is likely due to peptic ulcer disease and we will recommend an EGD on this admission. Also if her abdominal pain continues, we may recommend a diagnostic laparoscopy as well as evaluation of her uterus and ovaries and appendectomy. Job ID: [id number] DocumentID: [id number] Dictated Date: 12/27/2022 23:24:45 Beader Tender Date: 12/27/2022 23:57:00 Dictated By: JAC ESPARZA MD [facility]
[2022-12-28] VITALS (7 sets, daily range): BP systolic 91–102; BP diastolic 53–65
[2022-12-28] MEDS: PIPERACILLIN SODIUM/TAZOBACTAM 4.5 GM in NS (IVPB) 100 ML IV SCH ×3 (02:47→17:54)
[2022-12-28] MEDS ORDERED: diphenhydrAMINE 50 MG/ML INJ (BENADRYL) ONE (04:17)
[2022-12-28] MEDS: diphenhydrAMINE 50 MG/ML INJ (BENADRYL) IVP PRN ×3 (04:19→23:49)
[2022-12-28 04:43] LABS: BASOPHILS # (AUTO) 0.1 10^3/uL (0.0-0.1); BASOPHILS % (AUTO) 0 % (0-10); EOSINOPHILS # (AUTO) 0.1 10^3/uL (0.0-0.3); EOSINOPHILS % (AUTO) 1 % (0-10); HEMATOCRIT 35 % (35-52); HEMOGLOBIN 11.7 g/dL (11.5-16.0); LYMPHOCYTES # (AUTO) 1.9 10^3/uL (1.0-4.0); LYMPHOCYTES % (AUTO) 12 % (12-44); MEAN CORPUSCULAR HEMOGLOBIN 31 pg (25-34); MEAN CORPUSCULAR HGB CONC 34 g/dL (32-36); MEAN CORPUSCULAR VOLUME 93 fL (80-99); MEAN PLATELET VOLUME 9.7 fL (9.0-12.2); MONOCYTES # (AUTO) 1.6 10^3/uL (0.0-1.0); MONOCYTES % (AUTO) 10 % (0-12); NEUTROPHILS # (AUTO) 12.8 10^3/uL (1.8-7.8); NEUTROPHILS % (AUTO) 77 % (42-75); PLATELET COUNT 226 10^3/uL (130-400); WHITE BLOOD COUNT 16.6 10^3/uL (4.3-11.0)
[2022-12-28 05:11] LABS: ALBUMIN 3.4 GM/DL (3.2-4.5); BILIRUBIN,TOTAL 0.6 MG/DL (0.1-1.0); CALCIUM 8.5 MG/DL (8.5-10.1); CREATININE SERUM 0.71 MG/DL (0.60-1.30); POTASSIUM 3.9 MMOL/L (3.6-5.0); TOTAL PROTEIN 6.3 GM/DL (6.4-8.2)
[2022-12-28] MEDS: D5 1/2 NS W/KCL 20 MEQ/L 1,000 ML IV SCH ×4 (05:11→17:55)
[2022-12-28] MEDS: PANTOPRAZOLE 40 MG (PROTONIX) VIAL IV SCH ×2 (08:01→19:38)
[2022-12-28] MEDS: metroNIDAZOLE 500 MG/100 ML IVPB (PRE-MIX) IV SCH ×2 (08:01→19:38)
[2022-12-28] MEDS: VANCOMYCIN 1 GM/NS 250 ML IVPB IV SCH ×6 (08:01→23:49)
[2022-12-28] MEDS ORDERED: AMOX-355 PO (11:21)
[2022-12-28] MEDS: KETOROLAC 30 MG/ML VIAL IVP PRN (12:59)
--- NOTE | 2022-12-28 13:52 | Progress Note ---
Subjective Date Seen by a Provider: Dec 28, 2022 Time Seen by a Provider: 13:00 Subjective/Events-last exam still having crampy abd pain. no fever/chills. no nausea/vomiting. Focused Exam Lactate Level 12/27/22 19:20: Lactic Acid Level 0.99 Time of Focused Exam: 20:40 Objective Exam Vital Signs Date Time Temp Pulse Resp B/P (MAP) Pulse Ox O2 Delivery O2 Flow Rate FiO2 12/28/22 13:00 96 12/28/22 11:08 36.8 89 18 102/53 (69) 96 Room Air 12/28/22 08:00 Room Air 12/28/22 07:14 36.4 79 18 96/64 (75) 97 Room Air 12/28/22 07:00 84 12/28/22 05:11 37.0 12/28/22 04:28 38.0 12/28/22 03:51 36.9 95 18 94/60 (71) 96 Room Air 12/28/22 01:00 105 12/28/22 00:00 36.5 85 18 102/65 (77) 96 Room Air 12/27/22 22:57 104 12/27/22 22:45 98 Room Air 12/27/22 22:10 36.9 93 16 110/63 (79) 97 Room Air 12/27/22 21:58 93 18 115/70 98 Room Air 12/27/22 18:57 37.6 107 14 117/77 (90) 98 Room Air I & O 12/28/22 07:00 Intake Total 1450 ml Balance 1450 ml Capillary Refill : Less Than 3 Seconds General Appearance: No Apparent Distress HEENT: PERRL/EOMI Neck: Full Range of Motion Respiratory: Chest Non Tender, Lungs Clear, Normal Breath Sounds Cardiovascular: Regular Rate, Rhythm Gastrointestinal: normal bowel sounds, soft, tenderness Extremity: Normal Capillary Refill Neurologic/Psychiatric: Alert, Oriented x3 Skin: Normal Color Lymphatic: No Adenopathy Results Lab Laboratory Tests 12/27/22 19:00: White Blood Count 18.0H, Red Blood Count 4.00, Hemoglobin 12.7, Hematocrit 37, Mean Corpuscular Volume 93, Mean Corpuscular Hemoglobin 32, Mean Corpuscular Hemoglobin Concent 34, Red Cell Distribution Width 12.3, Platelet Count 235, Mean Platelet Volume 9.2, Immature Granulocyte % (Auto) 0, Neutrophils (%) (Auto) 80H, Lymphocytes (%) (Auto) 11L, Monocytes (%) (Auto) 8, Eosinophils (%) (Auto) 0, Basophils (%) (Auto) 0, Neutrophils # (Auto) 14.4H, Lymphocytes # (Auto) 2.0, Monocytes # (Auto) 1.4H, Eosinophils # (Auto) 0.1, Basophils # (Auto) 0.1, Immature Granulocyte # (Auto) 0.1, Neutrophils % (Manual) 84, Lymphocytes % (Manual) 11, Monocytes % (Manual) 5, Blood Morphology Comment NORMAL, Erythrocyte Sedimentation Rate 31H, Sodium Level 135, Potassium Level 3.7, Chloride Level 105, Carbon Dioxide Level 21, Anion Gap 9, Blood Urea Nitrogen 6L, Creatinine 0.69, Estimat Glomerular Filtration Rate 121, BUN/Creatinine Ratio 9, Glucose Level 115H, Calcium Level 8.9, Corrected Calcium 9.1, Magnesium Level 2.0, Total Bilirubin 0.7, Aspartate Amino Transf (AST/SGOT) 14, Alanine Aminotransferase (ALT/SGPT) 16, Alkaline Phosphatase 80, C-Reactive Protein High Sensitivity 14.66H, Total Protein 7.0, Albumin 3.7, Amylase Level 42, Lipase 17, Serum Test, Qualitative NEGATIVE, Serum Alcohol < 10 12/27/22 19:20: Urine Color YELLOW, Urine Clarity SL CLOUDY, Urine pH 6.0, Urine Specific [place] 1.015L, Urine Protein NEGATIVE, Urine Glucose (UA) NEGATIVE, Urine Ketones NEGATIVE, Urine Nitrite NEGATIVE, Urine Bilirubin NEGATIVE, Urine Urobilinogen 0.2, Urine Leukocyte Esterase 3+H, Urine RBC (Auto) TRACE-IH, Urine RBC 10-25H, Urine WBC 10-25H, Urine Squamous Epithelial Cells 10-25H, Urine Crystals NONE, Urine Bacteria MODERATEH, Urine Casts NONE, Urine Mucus MODERATEH , Urine Trichomonas MODERATEH, Urine Culture Indicated CULTURE PENDING, Lactic Acid Level 0.99, Urine Opiates Screen NEGATIVE, Urine Oxycodone Screen NEGATIVE, Urine Methadone Screen NEGATIVE, Urine Propoxyphene Screen NEGATIVE, Urine Barbiturates Screen NEGATIVE, Ur Tricyclic Antidepressants Screen NEGATIVE, Urine Phencyclidine Screen NEGATIVE, Urine Amphetamines Screen NEGATIVE, Urine Methamphetamines Screen NEGATIVE, Urine Benzodiazepines Screen NEGATIVE, Urine Cocaine Screen NEGATIVE, Urine Cannabinoids Screen NEGATIVE, Influenza Type A (RT-PCR) Not Detected, Influenza Type B (RT-PCR) Not Detected, SARS-CoV-2 RNA (RT-PCR) Not Detected 12/27/22 19:32: Prothrombin Time 13.6, INR Comment 1.0, Activated Partial Thromboplast Time 33 12/27/22 20:52: Urine Opiates Screen NEGATIVE, Urine Oxycodone Screen NEGATIVE, Urine Methadone Screen NEGATIVE, Urine Propoxyphene Screen NEGATIVE, Urine Barbiturates Screen NEGATIVE, Ur Tricyclic Antidepressants Screen NEGATIVE, Urine Phencyclidine Screen NEGATIVE, Urine Amphetamines Screen NEGATIVE, Urine Methamphetamines Screen NEGATIVE, Urine Benzodiazepines Screen NEGATIVE, Urine Cocaine Screen NEGATIVE, Urine Cannabinoids Screen NEGATIVE 12/28/22 04:05: White Blood Count 16.6H, Red Blood Count 3.74L, Hemoglobin 11.7, Hematocrit 35, Mean Corpuscular Volume 93, Mean Corpuscular Hemoglobin 31, Mean Corpuscular Hemoglobin Concent 34, Red Cell Distribution Width 12.4, Platelet Count 226, Mean Platelet Volume 9.7, Immature Granulocyte % (Auto) 1, Neutrophils (%) (Auto) 77H, Lymphocytes (%) (Auto) 12, Monocytes (%) (Auto) 10, Eosinophils (%) (Auto) 1, Basophils (%) (Auto) 0, Neutrophils # (Auto) 12.8H, Lymphocytes # (Auto) 1.9, Monocytes # (Auto) 1.6H, Eosinophils # (Auto) 0.1, Basophils # (Auto) 0.1, Immature Granulocyte # (Auto) 0.1, Sodium Level 137, Potassium Level 3.9, Chloride Level 109H, Carbon Dioxide Level 20L, Anion Gap 8, Blood Urea Nitrogen 5L, Creatinine 0.71, Estimat Glomerular Filtration Rate 119, BUN/Creatinine Ratio 7, Glucose Level 97, Calcium Level 8.5, Corrected Calcium 9.0, Total Bilirubin 0.6, Aspartate Amino Transf (AST/SGOT) 11, Alanine Aminotransferase (ALT/SGPT) 15, Alkaline Phosphatase 72, Total Protein 6.3L, Albumin 3.4 Microbiology 12/27/22 Genital Culture, Resulted Pending 12/27/22 Wet Prep - Final, Resulted Assessment/Plan Assessment/Plan Assess & Plan/Chief Complaint abd pain with duodenitis and RLQ abd pain. EGD with bx and dx laparoscopy r/o tonny's syndrome. JAC ESPARZA MD Dec 28, 2022 13:52
[2022-12-29] VITALS (10 sets, daily range): BP systolic 95–114; BP diastolic 55–78
[2022-12-29] MEDS: PIPERACILLIN SODIUM/TAZOBACTAM 4.5 GM in NS (IVPB) 100 ML IV SCH ×2 (01:20→10:38)
[2022-12-29] MEDS: D5 1/2 NS W/KCL 20 MEQ/L 1,000 ML IV SCH ×2 (05:38→15:44)
[2022-12-29] MEDS ORDERED: TROUGH ORDER-PHARMACY XX ONE (07:00)
[2022-12-29] MEDS: VANCOMYCIN 1 GM/NS 250 ML IVPB IV SCH ×4 (08:08→16:09)
[2022-12-29] MEDS: metroNIDAZOLE 500 MG/100 ML IVPB (PRE-MIX) IV SCH (08:26)
[2022-12-29] MEDS: PANTOPRAZOLE 40 MG (PROTONIX) VIAL IV SCH (08:26)
[2022-12-29] MEDS: KETOROLAC 30 MG/ML VIAL IVP PRN (08:30)
[2022-12-29] MEDS: diphenhydrAMINE 50 MG/ML INJ (BENADRYL) IVP PRN (08:30)
[2022-12-29] MEDS ORDERED: SEVOFLURANE (ULTANE) 15 ML INHAL SOLN ONE (10:29)
[2022-12-29] MEDS ORDERED: MIDAZOLAM 2 MG/2 ML (VERSED) VIAL ONE (10:29)
[2022-12-29] MEDS ORDERED: ROCURONIUM 50 MG/5 ML (ZEMURON) VIAL IV ONE (10:29)
[2022-12-29] MEDS ORDERED: fentaNYL INJ 100 MCG/2 ML AMP ONE (10:29)
[2022-12-29] MEDS ORDERED: proPOfol 200 MG/20 ML (DIPRIVAN) VIAL IV ONE (10:29)
[2022-12-29] MEDS ORDERED: LIDOCAINE PF 2% 5 ML (XYLOCAINE) VIAL ONE (10:29)
[2022-12-29] MEDS ORDERED: LIDOCAINE/EPI 1%-1:100,000 (XYLOCAINE) 20ML ONE (10:33)
[2022-12-29] MEDS: LACTATED RINGERS 1,000 ML IV PRN ×2 (10:39→12:10)
--- NOTE | 2022-12-29 10:42 | Progress Note-Pre Operative ---
Pre-Operative Progress Note Date of Available H&P: Dec 29, 2022 Date H&P Reviewed: Dec 29, 2022 Time H&P Reviewed: 10:00 History & Physical: No changes noted Pre-Operative Diagnosis: duodenitis, right lower quadrant abd pain. JAC ESPARZA MD Dec 29, 2022 10:42
[2022-12-29] MEDS ORDERED: morphine INJ 4 MG/ML 1 ML (VIAL/SYRINGE) IVP PRN (10:45)
[2022-12-29] MEDS ORDERED: LACTATED RINGERS 1,000 ML IV PRN (11:15)
[2022-12-29] MEDS ORDERED: LIDOCAINE/EPI 1%-1:100,000 (XYLOCAINE) 20ML INJ ONE (11:26)
[2022-12-29] MEDS ORDERED: GLYCOPYRROLATE 0.2 MG/ML (ROBINUL) 2 ML VIAL ONE (11:40)
[2022-12-29] MEDS ORDERED: NEOSTIGMINE (BLOXIVERZ ) 1 MG/1ML 10 ML VIAL ONE (11:40)
[2022-12-29] MEDS ORDERED: HYDROmorphone 2 MG/ML VIAL (DILAUDID) ONE (11:54)
[2022-12-29] MEDS ORDERED: ONDANSETRON 4 MG/2 ML (SDV) Z0FRAN ONE (11:57)
--- NOTE | 2022-12-29 12:10 | Anesthesia-General Post-Op ---
General Patient Condition Mental Status/LOC: Same as Preop Cardiovascular: Satisfactory Nausea/Vomiting: Absent Respiratory: Satisfactory Pain: Controlled Complications: Absent Post Op Complications Complications None Follow Up Care/Instructions Patient Instructions None needed. Anesthesia/Patient Condition Patient Condition Patient is doing well, no complaints, stable vital signs, no apparent adverse anesthesia problems. No complications reported per nursing. D/C home per [facility] [place] Criteria: Yes LANA MEI CRNA Dec 29, 2022 12:10
[2022-12-29] MEDS ORDERED: ONDANSETRON 4 MG/2 ML (SDV) Z0FRAN IVP PRN (12:15)
[2022-12-29] MEDS ORDERED: HYDROmorphone 2 MG/ML VIAL (DILAUDID) IV ONE (12:15)
--- NOTE | 2022-12-29 12:15 | Progress Note-Post Operative ---
Post-Operative Progess Note Surgeon (s)/Location Man (s) Surgeon JAC ESPARZA MD Location Man: none Pre-Operative Diagnosis duodenitis, right lower quadrant abd pain. Post-Operative Diagnosis acute non-complicated apendicitis, left ovarian cyst. reflux esophagitis(grade B), moderate gastritis and duodenitis. Procedure & Operative Findings Date of Procedure 12/29/22 Procedure Performed/Findings diagnostic laparoscopy, laparoscopic appendectomy, EGD with bx. Anesthesia Type get Estimated Blood Loss Estimated blood loss (mL): minimal Specimens/Packing Specimens Removed appendix, ge jxn, antrum, duodenum. JAC ESPARZA MD Dec 29, 2022 12:15
[2022-12-29] MEDS ORDERED: ACHD5005 PO (12:22)
[2022-12-29] MEDS ORDERED: METR-145 PO (12:22)
[2022-12-29] MEDS ORDERED: LEVO-55 PO (12:22)
--- NOTE | 2022-12-29 12:23 | Discharge Inst-Surgical ---
D/C Lap Instructions-VILMA New, Converted, or Re-Newed RX: RX on Chart Follow Up Appt in 2 weeks Activity as tolerated No driving for 24 hours No driving while on pain medications Incentive Spirometry use every 2 hours while awake Regular Diet Symptoms to Report: Fever over 101 degree F, Nausea/Vomiting Infection Signs and Symptoms to report: Increased redness, Foul odor of wound, Increased drainage Bathing instructions: May shower Operative Area Clean/Dry; Keep incision clean/dry If any problems/questions: Contact your physician or go to Emergency Room JAC ESPARZA MD Dec 29, 2022 12:23
--- NOTE | 2022-12-29 17:45 | OPERATIVE REPORT ---
DATE OF SERVICE: 12/29/2022 PREOPERATIVE DIAGNOSES: Duodenitis, right lower abdominal quadrant pain. POSTOPERATIVE DIAGNOSES: Reflux esophagitis, [place] grade B, moderate gastritis and duodenitis. No formal ulcerations. Left ovarian cyst, acute noncomplicated appendicitis. PROCEDURE: Diagnostic laparoscopy, laparoscopic appendectomy. EGD with biopsy. SURGEON: Jac Esparza MD ANESTHESIA: General endotracheal. ESTIMATED BLOOD LOSS: Minimal. FINDINGS: Reflux esophagitis, [place] grade B, moderate gastritis and duodenitis. No formal ulcerations. Left ovarian cyst, acute noncomplicated appendicitis. DISPOSITION: The patient tolerated the procedure well. INDICATIONS: The patient is a 27-year-old female who presented to the Emergency Department with abdominal pain. She had reported the pain for the past 2 days and was localized more on the right side of the abdomen including the right upper abdominal quadrant; however, also the right lower abdominal quadrant. She had presented to the Emergency Department a day previous and a CT scan was performed, which did show some duodenitis. However, no other abnormalities. The following day, another CT scan was performed and again duodenitis identified and the appendix is not visualized. The patient was also found to have Trichomonas vaginalis upon admission. She also had a urinary tract infection. DESCRIPTION OF PROCEDURE: The patient was brought to the operating room, laid supine on the table. After adequate IV pain and sedative medications and general endotracheal intubation, the abdomen was prepped and draped in standard surgical fashion. A 0.5% Marcaine with epinephrine was used to anesthetize the overlying skin in the left upper abdominal quadrant and a transverse skin incision made using #15 blade. An 0 silk suture was applied to the medial aspect of the incision for retraction and Veress needle inserted with a low opening pressure of 0 mmHg and the abdomen was insufflated to 15 mmHg pressure. Veress needle removed and a 5 mm XL trocar placed followed by a 5 mm 45-degree angle laparoscope visualized the peritoneal cavity. A 4-quadrant abdominal exploration was performed. There was some serous fluid in the pelvis, which appeared physiologic. There was a left ovarian cyst, which appeared to be a physiologic corpus luteal cyst. There was also inflammation of the appendix with no perforation. The gallbladder, liver, small bowel appeared normal. Under direct visualization, we then placed a supraumbilical 10 mm port after the skin and peritoneal lining were anesthetized using 0.5% Marcaine with epinephrine and a transverse skin incision made using a #15 blade. In a similar manner, a suprapubic 5 mm port was placed. The patient was then placed in Trendelenburg position. The appendix was then gently dissected out in a blunt manner. The appendix was then retracted towards the anterior abdominal wall and a window created between the base of the appendix and the mesoappendix using a [place] dissector. The appendix was then stapled at the cecal base using a GIA45 mm stapler with a 2.5 mm thickness load. The mesoappendix was then stapled and transected with the same stapler with a 2.0 mm thickness reload with visualization of good hemostasis. The area was then copiously irrigated and suctioned out. The appendix was removed through the 10 mm port site using an EndoCatch bag. The 10 mm port site fascia and peritoneum were then closed under direct visualization using a Riky-Elza device and 0 Vicryl suture. The abdomen was desufflated and remaining ports removed. All skin incisions were closed using 4-0 Monocryl running subcuticular sutures. Wounds were then cleaned and covered with Dermabond. The mouthpiece was applied. The endoscope was placed in the mouth, visualize the pharynx and hypopharyngeal region. Vocal cords, epiglottis and vallecula identified and appeared to be normal. Endoscope was then gently intubated in the esophageal opening and esophagus insufflated. The endoscope was then advanced through the first, second and third portions of esophagus at the level of the GE junction, reflux esophagitis, [place] grade B identified. No ulcers or strictures identified. A biopsy was taken with forceps with visualization of good hemostasis. The endoscope was then advanced into the stomach and endoscope retroflexed visualizing no significant hiatal hernia. There was moderate gastritis as well as moderate duodenitis. However, no formal ulcerations, polyps or any neoplasms. A biopsy was taken of the antrum to rule out H. pylori as well as the duodenum with visualization of good hemostasis. The endoscope was then slowly withdrawn while taking a second look and suctioning of residual air with no additional findings. The patient tolerated the procedure well. We will start IV and oral pain medication as well as a clear liquid diet. Once tolerating clears, has good pain control with oral pain medication and is ambulating well, we will discharge her home. We will also treat her for her Trichomonas vaginalis as well as other potential as sexually transmitted diseases and proceed with metronidazole b.i.d. for 1 week as well as Levaquin daily for 7 days. Job ID: [id number] DocumentID: [id number] Dictated Date: 12/29/2022 13:04:50 New Car Driver Date: 12/29/2022 17:43:00 Dictated By: JAC ESPARZA MD
--- NOTE | 2022-12-30 14:40 | Physician Query Clarification ---
PQ-Uncertain Diagnosis Admission/Discharge Admission Date: Dec 27, 2022 at 21:57 Discharge Date: Dec 29, 2022 at 16:19 Dr. Esparza, The medical record reflects the following clinical scenario: History/Risk Factors: acute appendicitis, duodenitis, UTI, trichomoniasis Clinical Findings: T 37.6, P 107, R 18, WBC 18.0, Lactic acid 0.99 Treatment: IV Piperacillin, IV Ceftriaxone Question: Is sepsis a clinically valid diagnosis? Sepsis was documented in the ER record with no further documentation in the medical record. Please document a response in Progress Note or Discharge Summary. 1. Yes, clinically valid, condition resolved. 2. No, condition ruled out. 3. Other, with explanation of clinical findings. 4. Undetermined, no explanation for clinical findings. PHYSICIAN RESPONSE Diagnosis clinically valid: Yes, Conditon resolved In responding to this query, please exercise your independent professional judgment. The purpose of this communication is to more accurately reflect the complexity of your patients condition. The fact that a question is asked does not imply that any particular answer is desired or expected. Thank you for your timely response to this clarification. Requestors name: Rainer THIS PHYSICIAN QUERY FORM IS A PERMANENT PART OF THE MEDICAL RECORD RAINER KENNEDY Dec 30, 2022 14:40 JAC ESPARZA MD Dec 30, 2022 17:12
== END 2022-12-29 16:19 | disposition home or self-care (01) | DRG 854 ==
LOC: EDUNIT# 18:57 → ER 18:59 → 4TH 21:57
PROVIDERS: ADMIT Surgery; ATTEND Surgery
PROC: 0DB78ZX Excision of Stomach, Pylorus, Via Natural or Artificial Opening Endoscopic, Diagnostic (ICD-10-PCS; 2022-12-29)
PROC: 0DB98ZX Excision of Duodenum, Via Natural or Artificial Opening Endoscopic, Diagnostic (ICD-10-PCS; 2022-12-29)
PROC: 0DTJ4ZZ Resection of Appendix, Percutaneous Endoscopic Approach (ICD-10-PCS; principal; 2022-12-29 10:48)
PROC: 0DB48ZX Excision of Esophagogastric Junction, Via Natural or Artificial Opening Endoscopic, Diagnostic (ICD-10-PCS; 2022-12-29 10:48)
DX: A41.9 Sepsis, unspecified organism (principal); K35.80 Unspecified acute appendicitis; N39.0 Urinary tract infection, site not specified; A59.09 Other urogenital trichomoniasis; K29.80 Duodenitis without bleeding; N83.12 Corpus luteum cyst of left ovary; K21.00 Gastro-esophageal reflux disease with esophagitis, without bleeding; F17.210 Nicotine dependence, cigarettes, uncomplicated; K29.70 Gastritis, unspecified, without bleeding; F15.90 Other stimulant use, unspecified, uncomplicated; F12.90 Cannabis use, unspecified, uncomplicated; Z20.822 Contact with and (suspected) exposure to COVID-19
CPT/HCPCS: 36415; 71045; 74177; 80053; 80202; 80306; 80320; 81000; 82150; 83605; 83690; 83735; 84703; 85007; 85025; 85027; 85610; 85652; 85730; 86141; 87040; 87070; 87081; 87088; 87205; 87210; 87491; 87591; 87636; 93041